=== PATIENT | female | born 1990 | race Two or more races ===

== ENCOUNTER 2019-01-26 11:52 | Emergency (ER) | payer MEDICAID ==
[~2019-01-26] VITALS: Ht 167.6 cm; Wt 59.0 kg
[2019-01-26 12:00] VITALS: BP 127/92
[2019-01-26] MEDS ORDERED: EPINEPHrine HCL 1 MG/1 ML AMP SC ONE (12:45)
[2019-01-26] MEDS ORDERED: diphenhdrAMINE HCL 50 MG/1 ML VL IM ONE (12:45)
== END 2019-01-26 13:10 | disposition home or self-care (01) ==
LOC: ER 11:52
DX: T78.40XA Allergy, unspecified, initial encounter (principal); Z91.018 Allergy to other foods
CPT/HCPCS: 96372; 99283; J0171; J1200